=== PATIENT | male | born 1945 | race Caucasian/White ===

== ENCOUNTER 2022-01-21 11:20 | Outpatient (CLI) | payer MEDICARE, SELFPAY ==
[2022-01-21 10:38] LABS: Albumin* 4.4 g/dL (3.3-5.0)
[2022-01-21 10:39] LABS: Chloride* 101 mmol/L (96-114); Potassium* 4.4 mmol/L (3.6-5.1)
[2022-01-21 10:41] LABS: Aspartate Amino Transferase* 29 U/L (12-35); Carbon Dioxide* 31 mmol/L (20-32); Cholesterol* 180 mg/dL (90-199); Creatinine* 1.1 mg/dL (0.5-1.5); Estimated Glomerular Filt Rate 70 ml/min; Total Protein* 6.8 g/dL (6.0-8.3)
[2022-01-21 10:42] LABS: Alanine Aminotransferase* 37 U/L (4-50); Alkaline Phosphatase* 90 U/L (40-150); Blood Urea Nitrogen* 21 mg/dL (7-30); Calcium* 9.4 mg/dL (8.4-10.6); Glucose* 133 mg/dL (60-115); HDL Cholesterol* 50 mg/dL (>=40); LDL Cholesterol Calculated 98 mg/dL (<100); Triglycerides* 161 mg/dL (40-149)
[2022-01-21 11:07] LABS: PSA Screen* 0.33 ng/mL (0.10-4.00)
[2022-01-21 11:14] LABS: Sodium* 137 mmol/L (135-149)
== END 2022-01-21 11:21 | disposition home or self-care (01) ==
PROVIDERS: PCP Family Medicine; Visit Provider Family Medicine
DX: Z00.00 Encounter for general adult medical examination without abnormal findings (principal); E78.5 Hyperlipidemia, unspecified; N40.0 Benign prostatic hyperplasia without lower urinary tract symptoms; I10 Essential (primary) hypertension
CPT/HCPCS: 80053; 80061; 84153

== ENCOUNTER 2023-01-19 07:40 | Outpatient (CLI) | payer MEDICARE, SELFPAY | END 2023-01-19 07:41 | disposition home or self-care (01) | LOC: NFLDREF 01-21 11:30 | PROVIDERS: PCP Family Medicine; Referring Provider Family Medicine; Visit Provider Family Medicine | DX: E78.5 Hyperlipidemia, unspecified (principal); R73.01 Impaired fasting glucose; N40.0 Benign prostatic hyperplasia without lower urinary tract symptoms; Z12.5 Encounter for screening for malignant neoplasm of prostate | CPT/HCPCS: 80053; 80061; 84153 ==

== ENCOUNTER 2023-02-28 09:19 | Outpatient (CLI) | payer MEDICARE, SELFPAY | END 2023-02-28 09:20 | disposition home or self-care (01) | PROVIDERS: PCP Family Medicine; Visit Provider Family Medicine | DX: I10 Essential (primary) hypertension (principal) | CPT/HCPCS: 80048 ==

== ENCOUNTER 2023-04-12 10:51 | Outpatient (CLI) | payer MEDICARE, SELFPAY ==
--- OUTSIDE RECORDS SUMMARY | 2023-04-13 06:08 | XMS_ITS ---
Author Name Unknown Organization [facility] Address [address] [place] [address] Care Team Providers Care Senior Enterprise Architect Name Role Phone Unavailable Unavailable Unavailable Surgery Details Not on file Complications Check Surgery Details section. Procedure Estimated Blood Loss Check Surgery Details section. Procedure Findings Check Surgery Details section. Procedure Specimens Taken Check Surgery Details section.
--- OUTSIDE RECORDS SUMMARY | 2023-04-13 06:08 | XMS_ITS | Clinical Summary ---
Author Name Unknown Organization [facility] Address [address] [place] [address] Care Team Providers Care Php Consultant Name Role Phone Unavailable Primary Care Provider Unavailabl e Source Comments Patient records contain information from all sites at [facility]. For routine questions regarding patient records, call [phone] during business hours, M-F 8:00 AM - 5:00 PM Central Time. Record requests for emergency care only can be directed to [phone] at any time.[facility] Allergies No known active allergies Medications Medication Sig Dispensed Refills Start Date End Date Status simvastatin (ZOCOR) 40 mg tablet Take 40 mg by mouth daily. 0 01/12/2021 Active finasteride (PROSCAR) 5 mg tablet Take 5 mg by mouth daily. 0 10/02/2004 Active lisinopriL (PRINIVIL,ZESTRIL) 10 mg tablet Take 10 mg by mouth daily. 0 06/30/2017 Active ascorbic acid, vitamin C, (VITAMIN C) 500 mg tablet Take 500 mg by mouth daily. [address] tablet Take 81 mg by mouth daily. Taking 4 tablets daily. 0 06/30/2017 Active multivitamin (MULTIPLE VITAMINS DAILY ORAL) daily. 0 Acti ve Hospital, Clinic, or Other Facility Administered Medication Ordered Dose Route Frequency Start Date End Date Status lidocaine-EPINEPHrine 1%-1:200,000 injection 2-50 mL (XYLOCAINE W/EPI) 2 - 50 mL inj As needed 08/09/2018 Acti ve Active Problems Problem Noted Date Diagnosed Date Stroke Cerebrovascular Accident Personal History 07/29/2021 Social History Tobacco Use Types Packs/Day Years Used Date Smoking Tobacco: Never Smokeless Tobacco: Never Alcohol Use Standard Drinks/Week Comments Not Asked 0 (1 standard drink = 0.6 oz pur e alcohol) 1-2 a week Humiliation, Afraid, Rape, and Kick questionnair e Answer Date Recorded Within the last year, have y ou been afraid of your partner or ex-partner? No 07/15/2021 Within the last year, have y ou been humiliated or emotionally abused in other ways by your partner or ex-partner? No Within the last year, have y ou been kicked, hit, slapped, or otherwise physically hurt by your partner or ex-partner? No 07/15/2021 Within the last year, have y ou been raped or forced to have any kind of sexual activity by your partner or ex-partner? No 07/15/2021 Social Connection and Isolation Panel [NHANES] A nswer Date Recorded In a typical week, how many times do you talk on the phone with family, friends, or neighbors? Once a week 07/16/19 How often do you get togethe r with friends or relatives? Never 07/15/2021 How often do you attend chur ch or nondenominational services? 1 to 4 times per year 07/15/2021 Do you belong to any clubs o r organizations such as hoahaoism groups, unions, fraternal or athletic groups, or school groups? No 07/15/2021 How often do you attend meet ings of the clubs or organizations you belong to? Never 07/15/2021 Are you , , di vorced, , never , or living with a partner? 07/15/2021 AUDIT-C Answer Date Recorded Q1: How often do you have a drink containing alc ohol? 2-3 times a week 07/15/2021 Q2: How many drinks containi ng alcohol do you have on a typical day when you are drinking? 1 or 2 07/15/2021 Q3: How often do you have si x or more drinks on one occasion? Never 07/15/2021 Overall Financial Resource Strain (CARDIA) Answe r Date Recorded How hard is it for you to pa y for the very basics like food, housing, medical care, and heating? Not hard at all 07/15/2021 [facility] [place] of Occupat ional Health - Occupational Stress Questionnaire Answer Date Recorded Do you feel stress - tense, restless, nervous, or anxious, or unable to sleep at night because your mind is troubled all the time - these days? Only a little 07/15/2021 Exercise Vital Sign Answer Date Recorde d On average, how many days pe r week do you engage in moderate to strenuous exercise (like a brisk walk)? 3 days 07/15/2021 On average, how many minutes do you engage in exercise at this level? 60 min 07/15/2021 Hunger Vital Sign Answer Date Recorded Within the past 12 months, y ou worried that your food would run out before you got the money to buy more. Never true 07/16/19 Within the past 12 months, t he food you bought just didn't last and you didn't have money to get more. Never true 07/15/2021 PRAPARE - Transportation Answer Date Re corded In the past 12 months, has l ack of transportation kept you from medical appointments or from getting medications? No 07/03 In the past 12 months, has l ack of transportation kept you from meetings, work, or from getting things needed for daily living? No 07/15/2021 Housing Stability Vital Sign Answer Abdi e Recorded In the last 12 months, was t here a time when you were not able to pay the mortgage or rent on time? No 07/15/2021 In the last 12 months, how many places have you lived? 1 07/15/2021 In the last 12 months, was t here a time when you did not have a steady place to sleep or slept in a detention (including now)? No 07/15/2021 Nutrition Answer Date Recorded Nutrition: EVOO Fat Source No 07/15 On average, how many serving s of fruits and vegetables do you eat per day (serving size is equal to 1 cup or approximately the size of a tennis ball)? 0-1 07/15/2021 Dental Answer Date Recorded Dental: Regular Dentist Yes 07/16/19 Employment Answer Date Recorded Employment status Retired 07/15/2021 Education Answer Date Recorded What is the highest level of school you have completed or the highest degree you have received? Master's degree (e.g., MA, MS, Ross, MEd, SERVICE ASSISTANT, STEPHEN) 07/15/2021 Sex and Gender Information Value Date Recorded Sex Assigned at Male 07/15/2021 6:17 AM CDT Gender Identity Male 07/15/2021 6:17 AM CDT Sexual Orientation Straight 07/15/2021 6: 17 AM CDT Last Filed Vital Signs Vital Sign Reading Time Taken Comments Blood Pressure 144/79 07/29/2021 10:42 AM CDT Pulse 60 07/29/2021 10:42 AM CDT Temperature - - Respiratory Rate - - Oxygen Saturation - - Inhaled Oxygen Concentration - - Weight 101 kg (222 lb 14.2 oz) 07/29/2021 10:39 AM CDT Height - - Body Mass Index - - Plan of Treatment Health Maintenance Due Date Last Done Comments Creatinine Level (Kidney Fun ction Test) 1945 Hepatitis C Screening 1945 Potassium Level 1945 Sodium Level 1945 Office Visit for Blood Press ure Check / Re-check 10/28/2021 07/29/2021 Depression Screening (Annual PHQ-2) 04/04/2022 Fall Risk Screen (Annual) 04/04/2022 Influenza Vaccine (#1) 2023 , 12/12/2020, 12/07/2019, Additional history exists DTaP,Tdap,and Td Vaccines (7 - Td or Tdap) 12/28/2023 12/27/2013, 07/29/2006, 07/27/2006, Additional history exists Pneumococcal vaccine (65+ years) Completed 11/20/19, 12/26/2012 Zoster Vaccines Completed 02/10/2021, 12/03, 04/03/2008 COVID-19 Vaccine Completed 12/23/2022, 03/2022, 07/09/2021, Additional history exists Advance Directives For more information, please contact: [phone] Documents on File Type Date 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 See document viewer.
--- OUTSIDE RECORDS SUMMARY | 2023-04-13 06:08 | XMS_ITS | Referral Summary ---
Author Name Unknown Organization [facility] Address [address] [place] [address] Care Team Providers Care Fluorescent Lighting Model Maker Name Role Phone Unavailable Primary Care Provider Unavailabl e Source Comments Patient records contain information from all sites at [facility]. For routine questions regarding patient records, call [phone] during business hours, M-F 8:00 AM - 5:00 PM Central Time. Record requests for emergency care only can be directed to [phone] at any time.[facility] Allergies No known active allergies Medications Medication [...] often do you attend chur ch or alevism services? 1 to 4 times per year 07/15/2021 Do you belong to any clubs o r organizations such as adventist groups, unions, fraternal or athletic groups, or [...] and heating? Not hard at all 07/15/2021 [facility] [place] of Occupat ional Health - Occupational Stress [...] place to sleep or slept in a usp (including now)? 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 See document viewer.
--- OUTSIDE RECORDS SUMMARY | 2023-04-13 06:08 | XMS_ITS | Continuity of Care Document ---
Author Name Unknown Organization [facility] Address [address] [address] [place] [address] Phone Care Team Providers Care Network Security Officer Name Role Phone Ashok Truong MD Unavailable Unavailable Allergies, Adverse Reactions, Alerts Substance Reaction Status Criticality No Known allergies Medications Medication Instructions Dosage Effective Dates (start - stop) Status Comments Proscar 5 mg Tab Take one tablet by mouth daily - Active Flomax 0.4 mg 24 hr Cap Take one tablet by mouth daily - Active Procedures Procedure Date Colonosocpy Flex; Remov L Advance Directives Directive Yes / No Effective Date File Name No Information Encounters Encounter Description Practice Location Reason(s) For Visit Diagnoses Date Provider Providers Copied on Encounter [facility], [address] [address], [place], [place], [id number], [place] tel:[phone] [facility] Alexi Pulido. [address] [facility], [facility] [address], [place], [place], [address], [place]. tel:[phone] Family History Family Member Type Diagnosis Age At Onset No Information Payers Payer name Insurance type Covered constitution party ID Authoriza tion(s) Blue [place] [id number] Social History Type Description Quantity Date Captured Comments Sex Male Smoking Status No Information Chief Complaint And Reason For Visit No Information Reason For Referral Reason For Referral No Information History Of Present Illness Encounter Date Complaint History Of Prese nt Illness No Information Functional Status Date Functional Assessmen t No Information Instructions Date Instruction Additional Infor mation No Information Assessments Type Assessment Date No Information Patient Care Teams Name Effective Dates (start - stop) Status Members No Information
== END 2023-04-12 10:52 | disposition home or self-care (01) ==
LOC: NFLDREF 04-13 06:07
PROVIDERS: PCP Family Medicine; Referring Provider Family Medicine; Visit Provider Family Medicine
DX: I10 Essential (primary) hypertension (principal)
CPT/HCPCS: 80048

== ENCOUNTER 2023-12-22 14:55 | Outpatient (CLI) | payer MEDICARE, SELFPAY ==
--- NOTE | 2023-12-22 15:30 | MR_ITS ---
[address] [address] Phone:?[phone] Fax:?[phone] Referring Physician Information: Kg Torrez M.D. [address] [facility] [address] Phone:?[phone] Fax:?[phone] Patient:Nicole Ho D.O.B:?1945 Sex:?Male Phone:?[phone] [facility] MRN:?[id number] Exam Date:?12/22/2023 EXAM: MRI of the RIGHT HIP, without contrast CLINICAL HISTORY: Right hip pain. Evaluate for fracture. COMPARISONS: Plain radiographs 12/08/2023. TECHNICAL: MR sequences of the right hip: Axials: PD FS Axial oblique: PD Coronals: PD, T2 Coronal pelvis: T1 and STIR Sagittals: PD and T2 CONTRAST: None SEDATION: None FINDINGS: Pelvis osseous structures: Sacrum: No fracture or destructive osseous lesion is seen of the imaged portions of the sacrum. Sacroiliac joints: No convincing evidence of sacroiliitis of the imaged portions of the sacroiliac joints. Pubic rami: Unremarkable. Symphysis pubis: There is no evidence of acute osteitis pubis. Labrum: There is extensive fraying and tearing of the right hip labrum from the 12 o'clock position through 3 o'clock position anteriorly. Hip joint: Small right hip joint effusion. Marked right hip osteoarthritic changes include diffuse full-thickness chondral loss over most of the acetabulum and femoral head and associated degenerative subchondral cystic changes/subchondral edema-like signal. Proximal femur: No fracture, avascular necrosis, or destructive osseous lesion is seen. Right femoral cam morphology is best appreciated on frog-leg lateral view 12/08/2023. Acetabulum: Ligamentum teres: Unremarkable. Myotendinous structures: Gluteus abductors: The gluteus minimus and medius tendons are unremarkable. Rectus abdominis-adductor longus aponeurosis, adductors, and rectus abdominis: Unremarkable. Hamstrings: Unremarkable. Flexors: There is moderate right iliopsoas bursitis. The right rectus femoris tendon is unremarkable. Quadratus femoris muscle: Unremarkable. Piriformis muscle: Unremarkable. Gluteal aponeurotic fascia and IT band: Unremarkable. Pelvic soft tissues: There is an enlarged and heterogeneous prostate. The lumbar spine including multilevel degenerative disc disease is not optimally evaluated by this dedicated MRI of the right hip. IMPRESSION: 1. Marked right hip osteoarthritis with diffuse full-thickness chondral loss over most of the acetabulum and femoral head and associated degenerative subchondral cystic changes/subchondral edema-like signal. Extensive fraying and tearing of the right hip labrum from the 12 o'clock position through 3 o'clock position anteriorly. 2. Small right hip joint effusion. 3. Right femoral cam morphology. 4. Moderate right iliopsoas bursitis. 5. Enlarged and heterogeneous prostate. 6. The lumbar spine including multilevel degenerative disc disease is not optimally evaluated by this dedicated MRI of the right hip. Dedicated MRI of the lumbar spine could be obtained for further evaluation if clinically appropriate. RCB Electronically signed on 12/23/2023 9:54:00 AM by Cosmo Manzanares M.D.
== END 2023-12-22 14:56 | disposition home or self-care (01) ==
LOC: MRI 14:55
PROVIDERS: PCP Family Medicine; Visit Provider Orthopaedic Surgery
DX: M25.551 Pain in right hip (principal); M16.11 Unilateral primary osteoarthritis, right hip; M25.451 Effusion, right hip; M75.51 Bursitis of right shoulder; N40.0 Benign prostatic hyperplasia without lower urinary tract symptoms; M51.36 Other intervertebral disc degeneration, lumbar region
CPT/HCPCS: 73721

== ENCOUNTER 2024-01-09 09:00 | Outpatient (CLI) | payer MEDICARE, SELFPAY ==
--- OUTSIDE RECORDS SUMMARY | 2024-01-10 22:14 | XMS_ITS | Continuity of Care Document ---
Author Organization [facility] Address [address] [address] [place] [address] Phone Care Team Providers Care Client Relations Specialist Name Role Phone Ashok Truong MD Unavailable [...] Diagnoses Date Provider Providers Copied on Encounter [facility], [address] [address], [place], [place], [id number], [place] tel:[phone] [facility] Alexi Pulido. [address] [facility], [facility] [address], [place], [place], [address], [place]. tel:[phone] Family History Family Member Type Diagnosis Age At Onset No Information Payers Payer name Insurance type Covered green party ID Authoriza tiscotty(s) Blue Cross Of [facility] [id number] Social History Type Description Quantity Date Captured [...]
== END 2024-01-09 09:01 | disposition home or self-care (01) ==
LOC: NFLDREF 01-10 22:12
PROVIDERS: PCP Family Medicine; Referring Provider Family Medicine; Visit Provider Family Medicine
DX: R73.03 Prediabetes (principal); E78.5 Hyperlipidemia, unspecified; Z12.5 Encounter for screening for malignant neoplasm of prostate
CPT/HCPCS: 80053; 80061; G0103

== ENCOUNTER 2024-01-24 06:06 | Day surgery (SDC) | payer MEDICARE, SELFPAY ==
[2024-01-24] VITALS (18 sets, daily range): BP systolic 107–162; BP diastolic 66–97; PULSE 42–80; RESP 16; TEMP 36.1–36.8; O2SAT 90–97; BMI 34.9
--- OUTSIDE RECORDS SUMMARY | 2024-01-24 06:08 | XMS_ITS | Continuity of Care Document ---
Author Organization [facility] Address [address] [address] [place] [address] Phone Care Team Providers Care Senior Care Specialist Name Role Phone Ashok Truong MD [...] Diagnoses Date Provider Providers Copied on Encounter [facility], [address] [address], [place], [place], [id number], [place] tel:[phone] [facility] Alexi Pulido. [address] [facility], [facility] [address], [place], [place], [id number], [place]. tel:[phone] Family History Family Member Type Diagnosis Age At Onset No Information Payers Payer name Insurance type Covered libertarian ID Authoriza tiscotty(s) Blue Cross Of [facility] [id number] Social History Type Description Quantity Date Captured [...]
[2024-01-24] MEDS: CELECOXIB 200 MG CAPSULE PO (06:45)
[2024-01-24] MEDS: ACETAMINOPHEN 500 MG TABLET 1000 MG PO (06:45)
[2024-01-24] MEDS: OXYCODONE (CR) 10 MG TAB.ER.12H PO (06:45)
[2024-01-24] MEDS: SODIUM CHLORIDE 0.9 % (FLUSH) 10 ML SYRINGE IVF (06:48)
[2024-01-24] MEDS: LACTATED RINGERS 1000 ML 1,000 ML 100 ML IV (06:48)
--- NOTE | 2024-01-24 07:14 | SUR.PREOP ---
TIME?OUT:?0715 PT/RN/MDA?VERIFICATION?OF?SURGICAL?SITE,?PROCEDURE,?AND?CONSENT OBTAINED?PRIOR?TO?INVASIVE?PROCEDURE.
[2024-01-24] MEDS: fentaNYL 100 MCG/2 ML inj IVP (07:15)
[2024-01-24] MEDS: MIDAZOLAM HCL 1 MG/ML inj IVP (07:15)
--- NOTE | 2024-01-24 07:30 | CRLHL7_ITS ---
For Patients: As a result of the Cures Act, medical imaging exams and procedure reports are released immediately into your electronic medical record. You may view this report before your referring provider. If you have questions, please contact your health care provider. Indication: Hip replacement surgery Technique: AP hip fluoroscopic images. Fluoroscopy time 46.0 seconds. Findings/Impression: Hardware from a right total hip arthroplasty is in satisfactory position. Dictated by Percy Farr MD @ 01/24/2024 1:14:58 PM (Electronically Signed)
[2024-01-24] MEDS: CEFAZOLIN 2 GM INJ IVP (07:45)
[2024-01-24] MEDS: TRANEXAMIC ACID 100 MG/ML INJ 1000 MG IV (07:55)
--- NOTE | 2024-01-24 08:01 | P.NB_ITS ---
Nerve Block Nerve Block Time Seen by Provider: 07:20 Date Seen: 01/24/24 Type of block requested by surgeon for post-operative analgesia: ALIZE/LFCN Side: right Time out performed: Yes Verification of patient name: Yes Verification of date of : Yes Site marking: site marked Name of person performing procedure: Ric Continuous monitoring Was continuous monitoring of O2 sat, B/P, cardiac nurse practitioner, recorded every 15 minutes?: Yes Procedure Checklist: sterile prep, needles and gloves Ultrasound guided. Images saved: Yes Medications given in 5ml increments after negative aspiration: Ropivicaine %: 0.5 mL: 30 Needle gauge: 20 Precedex (mcg): 25 Patient tolerated procedure well: Yes Additional comments: Needle noted below psoas tendon needle noted adjacent to LFCN Block Charges Block Charge (with Pro Fee): Other Periph Nerve Block Use of Ultrasound Machine for Block: Yes- US Guidance/pain block
--- NOTE | 2024-01-24 08:02 | W.ANESCHARGE ---
Anesthesia Charges Start Date/Time Anesthesia Start Date: 01/24/24 Anesthesia Start Time: 07:23 Stop Date/Time Anesthesia Stop Date: 01/24/24 Anesthesia Stop Time: 09:38 Summary Extremes of Age - Over 70 or under 1: MDA
--- NOTE | 2024-01-24 08:53 | CRLHL7_ITS ---
For Patients: As a result of the Cures Act, medical imaging exams and procedure reports are released immediately into your electronic medical record. You may view this report before your referring provider. If you have questions, please contact your health care provider. Indication: POST OP RIGHT HIP Technique: AP pelvis and lateral view right hip Findings/Impression: Hardware from a right total hip arthroplasty is in satisfactory position. Bone alignment is normal. No sign of acute fracture. Postop changes are within normal limits. Dictated by Percy Farr MD @ 01/24/2024 1:15:29 PM (Electronically Signed)
--- NOTE | 2024-01-24 08:54 | PM.ORPRC ---
Procedure Note Date of procedure: 01/24/24 Procedure: PREOPERATIVE DIAGNOSIS: Right hip osteoarthritis POSTOPERATIVE DIAGNOSIS: Right hip osteoarthritis NAME OF OPERATION: Right total hip arthroplasty SURGEON: Kg Torrez MD DOCTOR OF NAPRAPATHY: Bria Yu PA-C, ANGELA Bailey IMPLANTS: 1. [employer] [place] # 54 sector ingrowth cup 2. 36 x 54 +4 neutral polyethylene 3. Actis # 5 high offset collared ingrowth stem 4. 36 +5 cobalt chrome femoral head ANESTHESIA: General ESTIMATED BLOOD LOSS: 340 cc COMPLICATIONS: None SPECIMENS: None DRAINS: None PREOPERATIVE ANTIBIOTICS: Ancef 2 grams INDICATIONS: The patient is a 78-year-old with a longstanding history of severe, unrelenting right hip pain secondary to end-stage right hip osteoarthritis. Despite appropriate nonoperative management, including activity modification, use of an assist device, anti-inflammatories, [id number] pain medication, physical therapy and injections, they continue to have pain and disability. Operative intervention was offered. The risks, benefits and expected outcomes were discussed in detail. These included but were not limited to: Infection, bleeding, injury to blood vessel or nerve, venous thromboembolism. All questions were answered to their satisfaction. Use of an pharmacy affairs assistant was necessary throughout the case for patient positioning and safety, soft tissue retraction and closure. PROCEDURE: The patient was placed supine on the Fletcher table. General anesthesia was administered. The pharmacy affairs assistant made sure the patient was properly positioned. The right hip was prepped and draped in the usual sterile fashion. The image intensifier was brought in for a perfect AP pelvis and a perfect double tear drop AP view of each hip which were used for intraoperative templating with our fluoroscopic guide. An oblique incision was made 3 cm distal and 3 cm lateral to the anterior superior iliac spine. The pharmacy affairs assistant retracted the soft tissues to protect them. Subcutaneous dissection was taken with electrocautery to the superficial fascia. The fascia was divided in line with the incision. Blunt dissection was carried medially to the tensor fascia nisha and sartorius interval. Deep dissection was carried with electrocautery. The circumflex vessels were cauterized and divided. The capsule was exposed and then divided in a T-fashion, tagged with #1 Ethibond sutures. Retractors were placed in the joint, held by the pharmacy affairs assistant. The corkscrew was placed in the femoral head. The neck cut was made in the subcapital region. We made a second neck cut more distal. The napkin ring of bone was removed. The femoral head was removed intact. Acetabular retractors were placed, held by the pharmacy affairs assistant. The labrum was sharply debrided. The capsule was released. The 43 mm reamer was used to the true medial wall. We then enlarged in 2 mm increments using the image intensifier for our reamer placement. We impacted the cup which had excellent purchase. We placed the polyethylene. Attention was then turned to the proximal femur. The limb was placed in 140 degrees of external rotation, maximum extension and adduction. A significant amount of time was spent releasing the capsule to allow us to deliver the femur into the wound and complete the femoral side safely. Retractors were held by the pharmacy affairs assistant throughout the femoral preparation. The gill box operator and canal finder were used. Broaches were used to a stable size. The calcar reamer was used. Trial components were placed. The hip was reduced and was found to be stable with appropriate soft tissue tension. Length and offset had been nicely restored using the image intensifier and our fluoroscopic guide. Trial components were removed. The stem was impacted. We placed the femoral head. Again, the hip was reduced and was found to be stable with appropriate soft tissue tension. Length and offset had been nicely restored. The pharmacy affairs assistant did a three minute dilute Betadine solution soak. The pharmacy affairs assistant irrigated the wound with 3 liters of normal saline via pulse lavage. The pharmacy affairs assistant repaired the anterior capsule with a #1 Vicryl and our previously placed Ethibond sutures. The pharmacy affairs assistant closed the fascia over the tensor fascia nisha with a #1 PDO Stratafix, subcutaneous tissues with 2-0 Vicryl, skin with a running 3-0 Stratafix and glue. A dry dressing was applied by the pharmacy affairs assistant. Sponge and needle counts were correct x 2. The patient tolerated the procedure well; there were no apparent complications. They were awakened and extubated in the operating room, sent to the Post-Anesthesia Care Unit in satisfactory condition. PLAN: 1. The patient will be mobilized with physical therapy, weight-bearing as tolerates 2. Xarelto x 5 days then aspirin x 30 days will be used for DVT prophylaxis 3. The patient will be discharged once medically appropriate
--- NOTE | 2024-01-24 09:41 | W.ANESCHARGE ---
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
--- NOTE | 2024-01-24 09:45 | SUR.OPER ---
PATIENT QUESTIONS ANSWERED SATISFACTORILY PREOPERATIVELY. PATIENT BROUGHT TO OR #2 PER CART AFTER ADMINISTRATION OF A BLOCK. Patient positioned supine on OR #2 bed. The perioperative team supported arms bilaterally on arm boards. Final approval of positioning by surgeon.
--- NOTE | 2024-01-24 12:03 | SUR.PHASEII ---
Spoke with Dr. Larios regarding patients Heart rate variability from 38-80 when patient is resting. Anesthesia has no further orders, continue to monitor.
== END 2024-01-24 14:47 | disposition home or self-care (01) ==
LOC: OR 06:06
PROVIDERS: PCP Family Medicine; Visit Provider Orthopaedic Surgery
PROC: (CPT 27130; principal; 2024-01-24 07:30)
DX: M16.11 Unilateral primary osteoarthritis, right hip (principal); G89.18 Other acute postprocedural pain; I11.9 Hypertensive heart disease without heart failure; E78.5 Hyperlipidemia, unspecified; N40.0 Benign prostatic hyperplasia without lower urinary tract symptoms; Z86.73 Personal history of transient ischemic attack (TIA), and cerebral infarction without residual deficits
CPT/HCPCS: 27130; 01214; 36415; 64450; 73501; 76000; 76942; 86850; 86900; 86901; 97116; 97161; 97165; 97530; 97535; 99100; A9270; C1776; J0330; J0690; J1100; J1171; J2250; J2405; J2704; J2710; J2795; J3010; J7120

== ENCOUNTER 2024-02-28 13:00 | Outpatient (RCR) | payer MEDICARE, SELFPAY ==
--- NOTE | 2024-01-06 14:15 | PT.OPEX ---
PT [facility] [facility] Eval PT [facility] Outpatient Eval Start: 01/06/24 09:05 Freq: Status: Active Protocol: Document 01/06/24 13:54 ARTIE (Rec: 01/06/24 14:02 RATIE [id number]) E-signed By Rosy Mendoza, PT Physical Therapy Outpatient Evaluation Insurance Information Recert Due Date 04/01/24 Insurance Name Medicare B,UCare Medical Diagnosis Right hip OA Pre and post-op R PONCHO DOS: . SDS Treating Diagnosis Right hip pain, limited hip ROM, antalgic gait, muscle weakness Imaging Report Information MRI of the right hip dated from [facility] shows diffuse grade 4 change on both sides of the joint with femoral head subchondral bone marrow edema. There is no obvious subchondral fracture. Referring MD Torrez Subjective Subjective Bertin (presents with , Mimi) reports to PT with primary complaint of right hip pain with gradual and insidious onset over the past 3 months. Also notes some off and on left hip pain as well. Pain worsened to the point of needing single crutch for ambulation. Used to walk 3-4 miles 3x/wk however now unable to walk short bouts outside of home. X-ray not indicative of significant dysfunction however MRI indicating labral tearing. Candidate for PONCHO. Lives with in multilevel home with 1 step to enter. Sleeps in basement with railings on both sides for stairs. Currently ascending with step to gait and reciprocal descending. Bathroom on both floors however shower on main level. 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, H/O vertigo, HTN Pain Comments 4-08/11 Date of Last Physician Visit 12/29/23 Date of Surgery (If applicable) 01/24/24 Current Work Status Retired Precautions Treatment Precautions/Contraindications H/O: CVA (limited peripheral vision L), HTN, vertigo Objective Other/Pertinent Objective Gait: ambulates with single crutch, limited stance time R LE, limited terminal hip extension/circumducted gait Hip ROM R: -flexion 90 -ER 15 -IR <5 -abd <30 Assessment Assessment/Impression Bertin is a 78 year old male presenting to PT for preparation of upcoming R PONCHO DOS 01/24/24 d/t labral tear and beginning stages of arthritis causing significant pain and dysfunction. Session focused on education of anterior hip precautions, post -operative fall prevention precautions, transfers, gait with AD, stair negotiation, post-operative exercises. He is able to verbalize precautions and demonstrated independence with exercises, gait and stairs. He is appropriate to proceed with surgery at this time. Plan of Care Rehabilitation Potential Good Physical Therapy Goals By end of session today, patient will... Demonstrate appropriate gait pattern with FWW and crutches to utilize post surgery for optimal safety when ambulating Demonstrate ability to negotiate stairs using appropriate stair pattern post surgery for optimal safety when at home and in community Verbalize understanding of most appropriate home set up including needed equipment for optimal safety and recovery post surgery Be independent in HEP program to show ability to perform appropriate exercises post surgery Treatment Plan/Direct Interventions Gait Training,Ice/Cold/ Vasopneumatic,Joint Mobilization,Manual Therapy, Neuromuscular Re-ed,Self-Care/ Home Management,Therapeutic Activities,Therapeutic Exercises Frequency/Duration Re-evaluate following surgery Patient Will Be Discharged From Therapy Completion of LTG(s), Independent w/HEP, Independently Progressing Evaluation Billing Untimed Code Treatment Minutes 30 Complexity Low Certification Information Initial Certification Date 01/06/24 Ending Certification Date 04/01/24 Provider Signature Required Yes Provider Signature Shows Agreement With POC & Medical Necessity Physician NPI Number Write NPI# Here Physician Comment/Change : Physician Signature & Date Requested Please Sign/Date Here
== END 2024-02-28 14:06 | disposition home or self-care (01) ==
PROVIDERS: PCP Family Medicine; Visit Provider Orthopaedic Surgery Sports Medicine
DX: M16.11 Unilateral primary osteoarthritis, right hip (principal); Z96.641 Presence of right artificial hip joint; Z74.09 Other reduced mobility; R26.9 Unspecified abnormalities of gait and mobility; M62.81 Muscle weakness (generalized); Z51.89 Encounter for other specified aftercare
CPT/HCPCS: 97110; 97140; 97161; 97164; 97535

== ENCOUNTER 2025-02-12 08:00 | Outpatient (CLI) | payer MEDICARE, SELFPAY | END 2025-02-12 08:01 | disposition home or self-care (01) | LOC: NFLDREF 02-15 04:41 | PROVIDERS: PCP Family Medicine; Referring Provider Family Medicine; Visit Provider Family Medicine | DX: E78.5 Hyperlipidemia, unspecified (principal) | CPT/HCPCS: 80053; 80061 ==

== ENCOUNTER 2025-03-07 13:39 | Outpatient (CLI) | payer MEDICARE, SELFPAY ==
[2025-03-07] MEDS: PERFLUTREN LIPID MICROSPHERES 2 ML VIAL IVP (14:49)
[2025-03-07 14:56] VITALS: BP 164/86; PULSE 87; RESP 18
--- NOTE | 2025-03-07 15:08 | W.PM.STED ---
Stress Test Note Date Date Seen: 03/07/25 Date of test: 03/07/25 Providers Primary care provider: Vaibhav Wilson Stress test physician: Valorie Saxena Stress Test Note Stress test ordered: Stress Echo Indication for test: Decreased exercise tolerance. Stress test medicine: Definity Results discussion: Resting EKG: Sinus rhythm, 73 beats per minute. Two PVCs seen. Some artifact. Flipped T-waves in V1, 3, AVF without any acute ST segment changes. Resting blood pressure: 142/82 Stress test: Patient is consented on ordered stress test of treadmill exercise stress echo agrees to proceed. Standard Tai protocol was followed. Patient exercised for a total of 6 minutes 41 seconds, equivocal in to 8.1 Mets. Patient met target heart rate and exercise tolerance, reason for stopping the test. He obtained a maximum heart rate of 130 beats per minute which was 106% of a calculated target heart rate of 122. Rate pressure product is 22,880. Patient exhibited many PVCs, increased during exercise; during exercise had periods of bigeminy, some couplets of V-tach but was asymptomatic with these. He had no other arrhythmias. He did not have any chest symptoms, no symptoms with this test outside of exhibiting some shortness of breath consistent with his work load. He did have a hypertensive response to exercise, highest blood pressure right into recovery was 190/92. Patient did require definity. Echo images are pending to couple this for a full formal diagnostic. Impression: Subjectively negative, objectively negative EKG portion of this stress test but with significant ventricular ectopy including frequent PVCs, bigeminy, couplets. Hypertensive response to exercise. Follow up suggested: Patient is discharged in stable condition, asymptomatic. Await echo images for full formal diagnostic report. He will wait to hear from his ordering physician on this. With the ventricular ectopy, could consider doing a Zio patch to calculate total burden or cardiology referral if felt indicated.
== END 2025-03-07 14:57 | disposition home or self-care (01) ==
LOC: STRESS 13:40
PROVIDERS: PCP Family Medicine; Visit Provider Family Medicine
DX: R68.89 Other general symptoms and signs (principal); Z82.49 Family history of ischemic heart disease and other diseases of the circulatory system
CPT/HCPCS: 93016; 93325; 93351; Q9957